=== PATIENT | female | born 1945 | race Caucasian/White ===

== ENCOUNTER 2022-10-24 08:30 | Day surgery (SDC) | payer MEDICARE, OTHER ==
[2022-10-24] VITALS (12 sets, daily range): BP systolic 132–173; BP diastolic 69–87
[~2022-10-24] VITALS: Ht 152.4 cm; Wt 72.7 kg
[2022-10-24] MEDS ORDERED: BUPIVACAINE 0.25% 10 ML (SENSORCAINE) VIAL ONE (09:29)
[2022-10-24] MEDS ORDERED: LACTATED RINGERS 1,000 ML IV PRN (09:30)
[2022-10-24] MEDS ORDERED: FISH OIL PO (09:42)
[2022-10-24] MEDS ORDERED: CHLO25TA22 PO (09:42)
[2022-10-24] MEDS ORDERED: TIZA2CAP9 PO (09:42)
[2022-10-24] MEDS ORDERED: SIMV20TA26 PO (09:42)
[2022-10-24] MEDS ORDERED: EZET10TA49 PO (09:42)
[2022-10-24] MEDS ORDERED: MELO15TA39 PO (09:42)
[2022-10-24] MEDS ORDERED: IRBE300T17 PO (09:42)
[2022-10-24] MEDS ORDERED: DULO60CA59 PO (09:42)
[2022-10-24] MEDS ORDERED: ONDANSETRON 4 MG/2 ML (SDV) Z0FRAN ONE (09:56)
[2022-10-24] MEDS ORDERED: proPOfol 200 MG/20 ML (DIPRIVAN) VIAL IV ONE (09:56)
[2022-10-24] MEDS ORDERED: LIDOCAINE PF 2% 5 ML (XYLOCAINE) VIAL ONE (09:56)
[2022-10-24] MEDS ORDERED: fentaNYL INJ 100 MCG/2 ML AMP ONE (09:56)
[2022-10-24] MEDS ORDERED: MIDAZOLAM 2 MG/2 ML (VERSED) VIAL ONE (09:57)
[2022-10-24] MEDS ORDERED: NS (IVPB) 50 ML ONE (10:33)
[2022-10-24] MEDS ORDERED: ceFAZolin INJECTION 1,000 MG ONE (10:33)
[2022-10-24] MEDS ORDERED: ceFAZolin INJECTION 1,000 MG in NS (IVPB) 50 ML IV ONE (10:45)
[2022-10-24] MEDS ORDERED: SEVOFLURANE (ULTANE) 15 ML INHAL SOLN ONE (12:18)
--- NOTE | 2022-10-24 12:32 | Operative Report - Ortho ---
Operative Report Surgeon (s)/Full Stack Web Developer (s) Surgeon REBECA CARLSON MD Full Stack Web Developer n/a Pre-Operative Diagnosis LEFT ANKLE FRACTURE Post-Operative Diagnosis Left Distal Fibula Fracture; Left Syndesmotic Disruption Operative Report Date of Procedure: Oct 24, 2022 Name of Procedure Performed: Open Reduction and Internal Fixation of Left Distal Fibula Fracture; Open Reduction and Internal Fixation of Left Syndesmosis Description & Findings After obtaining informed consent and marking the patient, patient did receive intravenous antibiotics. Taken to the operating room and general anesthesia was induced. Surgical timeout was taken. The left lower extremity was prepped and draped in the usual sterile fashion. Attention was initially turned to the fibula fracture, incision was made centered over the fracture. Dissection was c arried down to the fracture and a periosteal elevator was used to expose the fibula proximally and distally. The fracture was provisionally reduced using clamp and K-wire. A [employer] distal fibular plate was selected and placed. A wire was placed distally to position and temporarily hold the plate. A wire was placed in the diaphysis of the fibula. A nonlocking screw was then placed distally followed by a 2nd nonlocking screw. C-arm demonstrated good position of the plate with near anatomic reduction of the fracture. Locking screws were used to fill the distal holes of the plate. 3 locking screws were placed in the proximal portion of the plate. Wires and clamp were removed. C-arm demonstrated appropriate position of the plate and screws and maintained reduction of the fracture. There was noted clear space widening and instability of the syndesmosis. Attention was turned to the syndesmosis. A large periarticular clamp was used to reduce the syndesmosis. C-arm was used to confirm reduction. After drilling three cortices, a 44 mm 3.5 screw was placed for fixation of the syndesmosis. Clamp was removed and reduction was maintained. Final C-arm images were obtained in the AP, mortise, and lateral views and demonstrated appropriate reduction of the fractures and hardware in good position. Images were transferred to PACS. Wounds were irrigated with normal saline. Closed with 0 vicryl, 3-0 vicryl, and a combination of 3-0 and 4-0 nylon. Wounds were injected with local anesthetic. Dressed with xeroform, 4x4s, ABD, cast padding, soft roll, posterior splint, and ROSANNA wrap. Patient tolerated the procedure well and was stable to the recovery room. Anesthesia Type General Estimated Blood Loss minimal Specimen(s) collected/removed None REBECA CARLSON MD Oct 24, 2022 12:32
[2022-10-24] MEDS ORDERED: OXC5T PO (12:34)
--- NOTE | 2022-10-24 12:35 | Anesthesia-General Post-Op ---
General Patient Condition Mental Status/LOC: Same as Preop Cardiovascular: Satisfactory Nausea/Vomiting: Absent Respiratory: Satisfactory Pain: Controlled Complications: Absent Post Op Complications Complications None Follow Up Care/Instructions Patient Instructions None needed. Anesthesia/Patient Condition Patient Condition Patient is doing well, no complaints, stable vital signs, no apparent adverse anesthesia problems. No complications reported per nursing. SEVERINO DIMAS CRNA Oct 24, 2022 12:35
[2022-10-24] MEDS ORDERED: fentaNYL INJ 100 MCG/2 ML AMP IVP ONE (12:45)
[2022-10-24] MEDS ORDERED: HYDROmorphone 2 MG/ML VIAL (DILAUDID) IV ONE (12:45)
[2022-10-24] MEDS ORDERED: ONDANSETRON 4 MG/2 ML (SDV) Z0FRAN IVP PRN (12:45)
[2022-10-24] MEDS ORDERED: morphine INJ 10 MG/ML 1ML (SYR OR VIAL) IVP ONE (12:45)
--- NOTE | 2022-10-24 13:36 | Diagnostic Imaging Report ---
INDICATION: Left ankle fracture. ORIF. COMPARISON: None. TOTAL FLUORO TIME: 40 seconds. TOTAL NUMBER OF FLUOROSCOPIC IMAGES SAVED: 3 FINDINGS: Fluoroscopic guidance was provided intraoperatively during ORIF of the left ankle. Images provided show placement of orthopedic side plate and screws along the lateral margins of the distal fibula. Single syndesmotic screw is also noted. No unexpected radiopaque foreign bodies are identified. IMPRESSION: 1. Fluoroscopic guidance provided intraoperatively. Dictated by: Dictated on workstation # [id number]
== END 2022-10-24 14:45 ==
LOC: SDC 08:30
PROVIDERS: ATTEND Orthopaedic Surgery
DX: S82.832A Other fracture of upper and lower end of left fibula, initial encounter for closed fracture (principal); S93.432A Sprain of tibiofibular ligament of left ankle, initial encounter; X58.XXXA Exposure to other specified factors, initial encounter
CPT/HCPCS: 27792; 27829; 76000; 87081; C1713 ×9

== ENCOUNTER → 2022-11-05 | Outpatient (CLI) | payer MEDICARE, OTHER ==
[~2022-11-05] MED LIST: CHLO25TA22 PO; DULO60CA59 PO; EZET10TA49 PO; FISH OIL PO; IRBE300T17 PO; MELO15TA39 PO; OXC5T PO; SIMV20TA26 PO; TIZA2CAP9 PO
== END ==
LOC: ORTHO 10:25
PROVIDERS: ATTEND Orthopaedic Surgery
DX: Z47.89 Encounter for other orthopedic aftercare (principal); I10 Essential (primary) hypertension

== ENCOUNTER → 2022-12-09 | Outpatient (CLI) | payer MEDICARE, OTHER ==
--- NOTE | 2022-12-09 11:18 | Diagnostic Imaging Report ---
EXAMINATION: Left ankle radiographs, 3 views. COMPARISON: None. HISTORY: 77-year-old female, follow-up hardware at the level of the left ankle. Left ankle pain. FINDINGS: There is sideplate and screw fixation hardware along the distal fibula. There is also a syndesmotic screw. There is an oblique fracture of the distal fibula extending upwards from the level of the tibial plafond with persistent visible fracture line. There is a mild deformity of the base of the medial malleolus which may relate to prior fracture without a visible fracture line. The alignment of the ankle mortise is unremarkable. There is no tibiotalar joint effusion. IMPRESSION: 1. Intact sideplate and fixation hardware at the level of the distal fibula with persistent distal fibular fracture line extending upwards from the level of the tibial plafond. 2. Mild deformity in the region of the base of the medial malleolus which may relate to healed prior fracture. Dictated by: Dictated on workstation # [id number]
== END ==
LOC: ORTHO 10:35
PROVIDERS: ATTEND Orthopaedic Surgery
DX: M25.572 Pain in left ankle and joints of left foot (principal); Z87.81 Personal history of (healed) traumatic fracture
CPT/HCPCS: 73610

== ENCOUNTER 2023-01-12 05:31 | Outpatient (CLI) | payer MEDICARE, OTHER ==
[~2023-01-12] VITALS: Ht 149.8 cm; Wt 72.7 kg
== END 2023-01-13 15:52 | disposition home or self-care (01) ==
LOC: PREOP 05:31
PROVIDERS: ATTEND Orthopaedic Surgery
DX: Z01.818 Encounter for other preprocedural examination (principal)

== ENCOUNTER 2023-01-19 07:43 | Day surgery (SDC) | payer MEDICARE, OTHER ==
[~2023-01-19] VITALS: Ht 149.8 cm; Wt 72.7 kg
[2023-01-19] VITALS (10 sets, daily range): BP systolic 134–172; BP diastolic 61–92
[2023-01-19] MEDS ORDERED: ceFAZolin INJECTION 2,000 MG in NS (IVPB) 50 ML IV ONE (08:15)
[2023-01-19] MEDS ORDERED: LACTATED RINGERS 1,000 ML IV PRN (08:15)
[2023-01-19] MEDS ORDERED: BUPIVACAINE 0.25% 30 ML (SENSORCAINE) VIAL ONE (08:33)
[2023-01-19] MEDS ORDERED: NEO/POLY/BAC (NEOSPORIN) OINT 15 GM TUBE ONE (08:34)
[2023-01-19] MEDS ORDERED: fentaNYL INJ 100 MCG/2 ML AMP ONE (08:50)
[2023-01-19] MEDS ORDERED: BUPIVACAINE 0.25% 30 ML (SENSORCAINE) VIAL INJ ONE (10:55)
[2023-01-19] MEDS ORDERED: ONDANSETRON 4 MG/2 ML (SDV) Z0FRAN ONE (10:56)
[2023-01-19] MEDS ORDERED: proPOfol 200 MG/20 ML (DIPRIVAN) VIAL IV ONE (10:56)
[2023-01-19] MEDS ORDERED: NEO/POLY/BAC (NEOSPORIN) OINT 15 GM TUBE TOP ONE (10:56)
[2023-01-19] MEDS ORDERED: LIDOCAINE PF 2% 5 ML (XYLOCAINE) VIAL ONE (10:56)
[2023-01-19] MEDS ORDERED: SEVOFLURANE (ULTANE) 15 ML INHAL SOLN ONE (10:57)
--- NOTE | 2023-01-19 11:10 | Operative Report - Ortho ---
Operative Report Surgeon (s)/Crosscutter (s) Surgeon REBECA CARLSON MD Crosscutter n/a Pre-Operative Diagnosis Left Ankle Fracture with Retained Implants Post-Operative Diagnosis same Operative Report Date of Procedure: January 19, 2023 Name of Procedure Performed: Removal of Left Ankle Syndesmotic Screw Description & Findings After obtaining consent and marking the patient in the preoperative holding area, the patient was administered IV antibiotics and taken to the operating room. General anesthesia was induced. Surgical timeout was taken. The left lower extremity was prepped and draped in the usual sterile fashion. C-arm was used to localize the syndesmotic screw and incision was made over the head of the screw. Blunt dissection was performed in the area of the screw. Screwdriver was seated in the head of the screw and it was removed without difficulty. C-arm images after removal were obtained and sent to PACS. Wound was irrigated with normal saline. Closed with 3-0 nylon sutures. Wound was injected with local anesthetic and dressed with antibiotic ointment, xeroform, 4x4s, kerlix, and santo wrap. Patient tolerated the procedure well and was stable to the recovery room. Anesthesia Type General Estimated Blood Loss minimal Specimen(s) collected/removed None REBECA CARLSON MD January 19, 2023 11:10
[2023-01-19] MEDS ORDERED: PHENYLEPHRINE 100 MCG/ML 10 ML (ANESTHESIA) SYR ONE (11:11)
[2023-01-19] MEDS ORDERED: OXC5T PO (11:12)
[2023-01-19] MEDS ORDERED: ONDANSETRON 4 MG/2 ML (SDV) Z0FRAN IVP PRN (11:15)
[2023-01-19] MEDS ORDERED: morphine INJ 10 MG/ML 1ML (SYR OR VIAL) IVP ONE (11:15)
--- NOTE | 2023-01-19 11:17 | Anesthesia-General Post-Op ---
General Patient Condition Mental Status/LOC: Same as Preop Cardiovascular: Satisfactory Nausea/Vomiting: Absent Respiratory: Satisfactory Pain: Controlled Complications: Absent Post Op Complications Complications None Follow Up Care/Instructions Patient Instructions None needed. Anesthesia/Patient Condition Patient Condition Patient is awake in PACU and doing well, no complaints, stable vital signs, no apparent adverse anesthesia problems. No complications reported per nursing. LEEROY GUERRA DO January 19, 2023 11:16
[2023-01-19] MEDS ORDERED: oxyCODONE/APAP 5/325MG (PERCOCET 5) TABLET PO ONE (12:15)
[2023-01-19] MEDS ORDERED: oxyCODONE/APAP 5/325MG (PERCOCET 5) TABLET ONE (12:17)
--- NOTE | 2023-01-19 18:00 | Diagnostic Imaging Report ---
INDICATION: Surgery. FINDINGS: 12.5 seconds of fluoroscopy time were utilized during orthopedic surgery to the ankle. IMPRESSION: Fluoroscopy utilized during orthopedic surgery. Dictated by: Dictated on workstation # [id number]
== END 2023-01-19 13:15 | disposition home or self-care (01) ==
LOC: SDC 07:43
PROVIDERS: ATTEND Orthopaedic Surgery
DX: T84.197A Other mechanical complication of internal fixation device of bone of left lower leg, initial encounter (principal); G47.33 Obstructive sleep apnea (adult) (pediatric); Y79.1 Therapeutic (nonsurgical) and rehabilitative orthopedic devices associated with adverse incidents
CPT/HCPCS: 76000; 87081

== ENCOUNTER → 2023-02-03 | Outpatient (CLI) | payer MEDICARE, OTHER | LOC: ORTHO 10:49 | PROVIDERS: ATTEND Orthopaedic Surgery | DX: Z47.89 Encounter for other orthopedic aftercare (principal) ==